=== PATIENT | female | born 1955 | race Caucasian/White ===

== ENCOUNTER → 2016-05-02 | Outpatient (CLI) | payer BC, OTHER ==
[~2016-05-02] MED LIST: B-12 100 MCG PO; CALCIUM 600/VIT1 CA1 PO; FLAGYL500 MG PO; HCTZ 25MG TAB25 MG PO; MAGNESIUM500 MG PO; MULTI VITAMINS1 TAB PO; NEOMYCIN S500 MG/TAB PO; NEXIUM 40MG40 MG PO; NORCO 325 MG-7.1 TAB PO; NORVASC 5MG5 MG/TAB PO; PREMARIN 1.251.25 MG PO; PROMETHAZINE D118 ML PO; SYNTHROID0.05 MG/TA PO; VASOTEC20 MG PO
== END ==
LOC: COL.CARD 07:28
DX: M46.82 Other specified inflammatory spondylopathies, cervical region (principal); R42 Dizziness and giddiness; R41.89 Other symptoms and signs involving cognitive functions and awareness
CPT/HCPCS: A9585

== ENCOUNTER 2016-05-05 12:45 | Inpatient (IN) | payer BC ==
[~2016-05-05] VITALS: Ht 157.5 cm; Wt 71.1 kg
[2016-05-16] VITALS (12 sets, daily range): BP systolic 105–149; BP diastolic 53–81; PULSE 50–89; TEMP 97.5–98.9
[2016-05-16 06:06] LABS: HEMOGLOBIN 12.1 g/dl (12.5-16.0)
[2016-05-16 06:07] LABS: HEMATOCRIT 35.4 % (37.0-47.0)
[2016-05-16 06:19] LABS: CALCIUM 9.1 mg/dL (8.4-10.2); CREATININE, serum 0.69 mg/dL (0.52-1.25); POTASSIUM 3.5 mmol/L (3.4-5.0)
[2016-05-16] MEDS ORDERED: PREMARIN 1.251.25 MG PO (06:31)
[2016-05-16] MEDS ORDERED: VASOTEC20 MG PO (06:31)
[2016-05-16] MEDS ORDERED: NORVASC 5MG5 MG/TAB PO (06:32)
[2016-05-16] MEDS ORDERED: NEXIUM 40MG40 MG PO (06:32)
[2016-05-16] MEDS ORDERED: HCTZ 25MG TAB25 MG PO (06:32)
[2016-05-16] MEDS ORDERED: SYNTHROID0.05 MG/TA PO (06:33)
[2016-05-16] MEDS ORDERED: FLAGYL500 MG PO (06:34)
[2016-05-16] MEDS ORDERED: NEOMYCIN S500 MG/TAB PO (06:34)
[2016-05-16] MEDS ORDERED: PROMETHAZINE D118 ML PO (06:35)
[2016-05-16] MEDS ORDERED: CALCIUM 600/VIT1 CA1 PO (06:36)
[2016-05-16] MEDS ORDERED: MULTI VITAMINS1 TAB PO (06:36)
[2016-05-16] MEDS ORDERED: MAGNESIUM500 MG PO (06:37)
[2016-05-16] MEDS ORDERED: B-12 100 MCG PO (06:37)
[2016-05-16 18:09] LABS: MEAN CELL VOLUME 106 fl (80.0-100.0); MEAN CORPUSCULAR HGB CONC 33 g/dl (33.0-37.0); MEAN PLATELET VOLUME 11.3 fl (7.4-10.4); PLATELET COUNT 85 K/mm3 (130-400); RED BLOOD COUNT 2.91 M/mm3 (4.10-5.30); REDCELL DISTRIBUTION WIDTH-CV 17.3 % (11.5-14.5); WHITE BLOOD COUNT 15.9 K/mm3 (4.8-10.8)
[2016-05-16 18:10] LABS: HEMATOCRIT 30.7 % (37.0-47.0); HEMOGLOBIN 10.2 g/dl (12.5-16.0); MEAN CORPUSCULAR HEMOGLOBIN 35 pg (27.0-31.0)
[2016-05-16 18:11] LABS: ADD PATHOLOGY DIFF REVIEW NO
[2016-05-16 19:12] LABS: BAND 47 % (0-10); METAMYELOCYTE 1 % (0-0); NEUTROPHILS 47 % (42.0-75.2); TOTAL CELLS COUNTED 100
[2016-05-16 19:13] LABS: ANISOCYTOSIS 2+
[2016-05-16 19:15] LABS: PLATELET ESTIMATE NORMAL (NORMAL)
[2016-05-17 01:44] VITALS: BP 131/69; PULSE 85; TEMP 97.9
[2016-05-17 05:34] VITALS: BP 133/62; PULSE 65; TEMP 98.6
[2016-05-17 07:17] LABS: MEAN CELL VOLUME 107 fl (80.0-100.0); MEAN CORPUSCULAR HGB CONC 33 g/dl (33.0-37.0); MEAN PLATELET VOLUME 11.6 fl (7.4-10.4); PLATELET COUNT 78 K/mm3 (130-400); RED BLOOD COUNT 2.51 M/mm3 (4.10-5.30); REDCELL DISTRIBUTION WIDTH-CV 17.1 % (11.5-14.5)
[2016-05-17 07:19] LABS: ADD PATHOLOGY DIFF REVIEW NO; HEMATOCRIT 26.8 % (37.0-47.0); HEMOGLOBIN 8.9 g/dl (12.5-16.0); MEAN CORPUSCULAR HEMOGLOBIN 35 pg (27.0-31.0)
[2016-05-17 07:29] LABS: BAND 35 % (0-10); NEUTROPHILS 58 % (42.0-75.2); PLATELET ESTIMATE DECREASED (NORMAL); TOTAL CELLS COUNTED 100
[2016-05-17 07:35] LABS: CALCIUM 7.9 mg/dL (8.4-10.2); CREATININE, serum 0.6 mg/dL (0.52-1.25); POTASSIUM 3.5 mmol/L (3.4-5.0)
[2016-05-17 09:24] VITALS: BP 123/67; PULSE 61; TEMP 97.7
[2016-05-17 13:39] VITALS: BP 155/69; PULSE 81; TEMP 97.5
[2016-05-17 17:54] VITALS: BP 155/73; PULSE 67; TEMP 97.7
[2016-05-17 21:31] VITALS: BP 153/77; PULSE 73; TEMP 99.1
[2016-05-18 05:02] VITALS: BP 136/68; PULSE 85; TEMP 98.9
[2016-05-18 09:16] LABS: MEAN CELL VOLUME 108 fl (80.0-100.0); MEAN CORPUSCULAR HGB CONC 33 g/dl (33.0-37.0); MEAN PLATELET VOLUME 11.6 fl (7.4-10.4); PLATELET COUNT 86 K/mm3 (130-400); RED BLOOD COUNT 2.46 M/mm3 (4.10-5.30); REDCELL DISTRIBUTION WIDTH-CV 16.9 % (11.5-14.5); WHITE BLOOD COUNT 9.4 K/mm3 (4.8-10.8)
[2016-05-18 09:19] LABS: ADD PATHOLOGY DIFF REVIEW NO; HEMATOCRIT 26.6 % (37.0-47.0); HEMOGLOBIN 8.8 g/dl (12.5-16.0); MEAN CORPUSCULAR HEMOGLOBIN 36 pg (27.0-31.0)
[2016-05-18 09:38] LABS: BAND 22 % (0-10); NEUTROPHILS 60 % (42.0-75.2); TOTAL CELLS COUNTED 100
[2016-05-18 09:39] LABS: PLATELET ESTIMATE DECREASED (NORMAL)
[2016-05-18 10:00] VITALS: BP 149/65; PULSE 65; TEMP 97.7
[2016-05-18 14:12] VITALS: BP 152/74; PULSE 74; TEMP 98.1
[2016-05-18 17:34] VITALS: BP 146/71; PULSE 84; TEMP 97.9
[2016-05-18 21:03] VITALS: BP 155/77; PULSE 71; TEMP 98.1
[2016-05-19 04:16] VITALS: BP 160/72; PULSE 81; TEMP 98.1
[2016-05-19 07:03] LABS: MEAN CELL VOLUME 107 fl (80.0-100.0); MEAN CORPUSCULAR HGB CONC 33 g/dl (33.0-37.0); MEAN PLATELET VOLUME 11.4 fl (7.4-10.4); PLATELET COUNT 90 K/mm3 (130-400); REDCELL DISTRIBUTION WIDTH-CV 16.1 % (11.5-14.5); WHITE BLOOD COUNT 4.3 K/mm3 (4.8-10.8)
[2016-05-19 07:04] LABS: HEMATOCRIT 26.7 % (37.0-47.0); HEMOGLOBIN 8.8 g/dl (12.5-16.0); MEAN CORPUSCULAR HEMOGLOBIN 35 pg (27.0-31.0)
[2016-05-19 07:45] LABS: ADD PATHOLOGY DIFF REVIEW YES; BAND 9 % (0-10); EOSINOPHIL 1 % (0-4); METAMYELOCYTE 1 % (0-0); MYELOCYTE 1 % (0-0); NEUTROPHILS 54 % (42.0-75.2); PLATELET ESTIMATE DECREASED (NORMAL); TOTAL CELLS COUNTED 100
[2016-05-19 10:00] VITALS: BP 142/77; PULSE 82; TEMP 97.9
[2016-05-19 14:00] VITALS: BP 136/71; PULSE 82; TEMP 98
[2016-05-19 14:22] LABS: PATHOLOGY DIFF REVIEW OK
[2016-05-19] MEDS ORDERED: NORCO 325 MG-7.1 TAB PO (16:18)
== END 2016-05-19 17:10 | disposition home or self-care (01) | DRG 330 ==
LOC: SURG 05-16 05:16 → INPTSU 05-16 05:16 → SURG 05-16 07:30
PROVIDERS: Nurse Anesthetist, Certified Registered; Surgery
PROC: 0DBW4ZX Excision of Peritoneum, Percutaneous Endoscopic Approach, Diagnostic (ICD-10-PCS; 2016-05-16)
PROC: 0DTF0ZZ Resection of Right Large Intestine, Open Approach (ICD-10-PCS; principal; 2016-05-16 07:30)
DX: C18.2 Malignant neoplasm of ascending colon (principal); D61.818 Other pancytopenia; C77.2 Secondary and unspecified malignant neoplasm of intra-abdominal lymph nodes; C78.6 Secondary malignant neoplasm of retroperitoneum and peritoneum; D50.0 Iron deficiency anemia secondary to blood loss (chronic); I10 Essential (primary) hypertension; J45.20 Mild intermittent asthma, uncomplicated
CPT/HCPCS: A4315; J0694; J1100; J1170; J1650; J1885; J2270; J2405; J2704; J2710; J3010; J7120

== ENCOUNTER 2017-10-26 06:45 | Outpatient (CLI) | payer OTHER ==
[2017-10-26] VITALS (7 sets, daily range): BP systolic 91–107; BP diastolic 52–68; PULSE 78–94; TEMP 97.4
[~2017-10-26] VITALS: Ht 157.5 cm; Wt 65.9 kg
[2017-10-26] MEDS ORDERED: ZOVIRAX400 MG PO (08:54)
[2017-10-26] MEDS ORDERED: ELIQUIS 5MG PO (08:55)
[2017-10-26] MEDS ORDERED: NEURONTIN300 MG/CAP PO (08:56)
[2017-10-26] MEDS ORDERED: LASIX 40MG TABL40 MG PO (08:56)
[2017-10-26] MEDS ORDERED: MICRO-K 10 EXT10 MEQ PO (08:57)
[2017-10-26] MEDS ORDERED: DESOWEN0.051 TP (08:58)
[2017-10-26] MEDS ORDERED: VENTOLIN0.09 MG IH (08:59)
[2017-10-26] MEDS ORDERED: FLOVENT DI50 MCG/Act IH (09:01)
[2017-10-26 10:14] LABS: GRAN # 1.3 (1.4-6.5); GRAN % 70.2 % (42.2-75.2); LYMPH # 0.4 (1.2-3.4); LYMPH % 19.7 % (20.0-51.0); MEAN CELL VOLUME 97 fl (80.0-100.0); MEAN CORPUSCULAR HGB CONC 36 g/dl (33.0-37.0); MONO # 0.2 (0.1-0.6); RED BLOOD COUNT 2.66 M/mm3 (4.10-5.30); REDCELL DISTRIBUTION WIDTH-CV 20.5 % (11.5-14.5)
[2017-10-26 10:17] LABS: HEMATOCRIT 25.8 % (37.0-47.0); HEMOGLOBIN 9.4 g/dl (12.5-16.0); MEAN CORPUSCULAR HEMOGLOBIN 35 pg (27.0-31.0)
[2017-10-26 10:20] LABS: PLATELET COUNT 36 K/mm3 (130-400)
== END 2017-10-26 11:22 | disposition home or self-care (01) ==
LOC: SDCO 06:45
PROVIDERS: Pathology Anatomic Pathology & Clinical Pathology
DX: C90.00 Multiple myeloma not having achieved remission (principal); D64.81 Anemia due to antineoplastic chemotherapy; D70.1 Agranulocytosis secondary to cancer chemotherapy; M19.90 Unspecified osteoarthritis, unspecified site; I10 Essential (primary) hypertension; E78.5 Hyperlipidemia, unspecified; J45.909 Unspecified asthma, uncomplicated; K21.9 Gastro-esophageal reflux disease without esophagitis; Z79.01 Long term (current) use of anticoagulants; Z88.0 Allergy status to penicillin; Z90.710 Acquired absence of both cervix and uterus; Z90.49 Acquired absence of other specified parts of digestive tract; Z86.19 Personal history of other infectious and parasitic diseases; Z87.891 Personal history of nicotine dependence; Z85.038 Personal history of other malignant neoplasm of large intestine
CPT/HCPCS: J1644; J2250; J2405; J2704; J3010; J7120

== ENCOUNTER 2019-09-05 06:46 | Outpatient (CLI) | payer OTHER ==
[~2019-09-05] VITALS: Ht 157.5 cm; Wt 61.0 kg
[~2019-09-05 06:46] MED LIST changes: +DESOWEN0.051 TP; +ELIQUIS 5MG PO; +FLOVENT DI50 MCG/Act IH; +LASIX 40MG TABL40 MG PO; +MICRO-K 10 EXT10 MEQ PO; +NEURONTIN300 MG/CAP PO; +VENTOLIN0.09 MG IH; +ZOVIRAX400 MG PO
[2019-09-05 07:27] VITALS: BP 113/74; PULSE 71; TEMP 98
[2019-09-05 07:29] VITALS: BP 113/74; PULSE 71; TEMP 98
[2019-09-05] MEDS ORDERED: SODIUM BICARBO650 MG PO (07:41)
[2019-09-05] MEDS ORDERED: NEXIUM 40MG40 MG PO (07:42)
[2019-09-05] MEDS ORDERED: TUMS500 MG (07:42)
[2019-09-05] MEDS ORDERED: SYNTHROID 0.0.025 MG PO (07:44)
[2019-09-05 09:50] VITALS: BP 121/75; PULSE 66
--- NOTE | 2019-09-05 09:50 | NUR ---
PT ARRIVED BACK FROM PACU FROM [facility] VIA CART, SCOOTED TO BED, PT IS SLEEPY BUT ANSWERS QUESTIONS. BANDAID TO LEFT BACK HIP AREA IS CLEAN AND DRY. CALL LIGHT IN REACH SIPS ON JUICE
[2019-09-05 10:05] VITALS: BP 109/64; PULSE 66
[2019-09-05 10:19] LABS: BASO % 0.3 % (0.0-2.0); GRAN # 1.5 (1.4-6.5); GRAN % 48.4 % (42.2-75.2); LYMPH # 1.2 (1.2-3.4); LYMPH % 40.2 % (20.0-51.0); MEAN CELL VOLUME 97 fl (80.0-100.0); MEAN CORPUSCULAR HGB CONC 32 g/dl (33.0-37.0); MEAN PLATELET VOLUME 12.6 fl (7.4-10.4); MONO # 0.3 (0.1-0.6); MONO % 10.8 % (1.7-9.3); RED BLOOD COUNT 2.47 M/mm3 (4.10-5.30)
[2019-09-05 10:20] VITALS: BP 104/64; PULSE 67
[2019-09-05 10:35] VITALS: BP 106/64; PULSE 63
--- NOTE | 2019-09-05 10:45 | NUR ---
PT SITS UP IN BED, NO C/O POST CBC DRAWN THROUGH PORT PER PROTOCOL, CALLED OFFICE ON RESULTS OF HBG 7.7 AND PLATELETS AT 22. OFFICE STATES PT MAY BE DISCHARGED AND PROBABLY RECEIVE BLOOD IN [facility] [place] BEFORE IF PATIENT IS OK WITH THIS, DISCUSSED WITH PT AND STATES WOULD LIKE TO GO HOME, WHILE PT WAS STILL HERE OFFICE CALLED HER TO LINE UP TYPE AND CROSS TODAY AT [facility] [place] ON THE WAY HOME. PT WALKED TO B/R TO VOID, SITE REMAINS THE SAME. IV D'CD INTACT, AND PT DRESSED
[2019-09-05 10:50] LABS: HEMOGLOBIN 7.7 g/dl (12.5-16.0); MEAN CORPUSCULAR HEMOGLOBIN 31 pg (27.0-31.0)
[2019-09-05 10:54] LABS: PLATELET COUNT 22 K/mm3 (130-400)
--- NOTE | 2019-09-05 10:55 | NUR ---
REVIEWED WITH PT DISCHARGE WRITTEN DISCHARGE ON CARE OF SITE, AND ACTIVITY WITH MODERATE SEDATION WITH VERBAL UNDERSTANDING. PT DISCHARGED VIA W/C TO CAR TO , AND WILL STOP AT [facility] FOR BLOOD WORK
== END 2019-09-05 11:00 | disposition home or self-care (01) ==
LOC: SDCO 06:46
PROVIDERS: Pathology Anatomic Pathology & Clinical Pathology
DX: D61.818 Other pancytopenia (principal); Z85.79 Personal history of other malignant neoplasms of lymphoid, hematopoietic and related tissues; Z85.038 Personal history of other malignant neoplasm of large intestine; Z90.49 Acquired absence of other specified parts of digestive tract; E87.1 Hypo-osmolality and hyponatremia; E87.6 Hypokalemia; Z86.718 Personal history of other venous thrombosis and embolism; A04.71 Enterocolitis due to Clostridium difficile, recurrent; Z79.52 Long term (current) use of systemic steroids; I10 Essential (primary) hypertension; E78.5 Hyperlipidemia, unspecified; D63.0 Anemia in neoplastic disease; M19.90 Unspecified osteoarthritis, unspecified site
CPT/HCPCS: J1644; J2704; J7120